=== PATIENT | male | born 1985 | race Caucasian/White ===

== ENCOUNTER 2024-04-12 07:08 | Emergency (ER) | payer OTHER ==
[2024-04-12 07:20] VITALS: TEMP 99; BMI 11.1
[2024-04-12] MEDS ORDERED: METOCLOPRAMIDE HCL INJECTION 10 MG/2 ML VIAL ONE (08:06)
[2024-04-12] MEDS: SODIUM CHLORIDE 0.9% 500 ML INFUS.BAG IV ONE (08:26)
[2024-04-12] MEDS: METOCLOPRAMIDE HCL INJECTION 10 MG/2 ML VIAL IVPB ONE (08:26)
[2024-04-12 09:54] VITALS: BP 120/63; PULSE 55; RESP 18
== END 2024-04-12 09:48 | disposition home or self-care (01) ==
LOC: JER 07:08
PROC: 3E033GC Introduction of Other Therapeutic Substance into Peripheral Vein, Percutaneous Approach (ICD-10-PCS; principal; 2024-04-12)
DX: G43.909 Migraine, unspecified, not intractable, without status migrainosus (principal); R11.0 Nausea
CPT/HCPCS: 99284-25

== ENCOUNTER 2024-06-10 17:29 | Emergency (ER) | payer OTHER ==
[2024-06-10 17:39] VITALS: BP 138/74; PULSE 77; RESP 16; TEMP 98.5; BMI 26.4
[2024-06-10] MEDS ORDERED: SULFAMETHOXAZOLE/TRIMETHOPRIM 800MG/160MG D.S. TABLET ONE (22:15)
[2024-06-10] MEDS: SULFAMETHOXAZOLE/TRIMETHOPRIM 800MG/160MG D.S. TABLET PO ONE (23:00)
== END 2024-06-10 23:07 | disposition home or self-care (01) ==
LOC: JER 17:29
DX: L03.115 Cellulitis of right lower limb (principal)
CPT/HCPCS: 99283-25

== ENCOUNTER 2024-06-12 14:41 | Inpatient (IN) | payer OTHER ==
[2024-06-12 14:54] VITALS: BMI 27.9
[2024-06-12] MEDS ORDERED: PIPERACILLIN/TAZOB 4.5 GM 4.5 GM/100 ML BAG IVPB ONE (15:48)
[2024-06-12] MEDS ORDERED: ACETAMINOPHEN INJECTION 100 ML ONE (15:48)
[2024-06-12] MEDS: LACTATED RINGERS SOLUTION 1000 ML INFUS.BAG IV ONE (16:15)
[2024-06-12] MEDS: ACETAMINOPHEN 1000 MG/100 ML BAG IVPB ONE (16:15)
[2024-06-12] MEDS: PIPERACILLIN/TAZOB 4.5 GM 4.5 GM in DEXTROSE 5%-WATER 100 ML IVPB ONE (16:30)
[2024-06-12 16:31] LABS: BASO % 0.3 % (0-2.0); EOS % 1.3 % (0-4.5); HEMATOCRIT 41.8 % (35.4-49); HEMOGLOBIN 13.8 GM/dL (11.7-16.9); LYMPH % 10.1 % (8-40); MCH 30.4 pg (25.7-33.7); MCHC 32.9 g/dl (32.0-35.9); MEAN CELL VOLUME 92.6 fl (80-96); MEAN PLT VOLUME 8.3 fl (7.5-11.1); MONO % 6.2 % (3.8-10.2); NEUT % 82.1 % (42.8-82.8); PLATELET COUNT 231 10^3/uL (134-434); RBC 4.52 M/mm3 (4.00-5.60); WHITE BLOOD COUNT 10.9 K/mm3 (4.0-10.0)
[2024-06-12 16:36] LABS: INR 1.13 (0.83-1.09)
[2024-06-12 16:39] LABS: ACTIVATED PTT 29.3 SECONDS (25.2-36.5); POTASSIUM 4.1 mmol/L (3.5-5.1)
[2024-06-12 16:41] LABS: CALCIUM 8.6 mg/dL (8.5-10.1)
[2024-06-12 16:42] LABS: MAGNESIUM 2.1 mg/dL (1.8-2.4)
[2024-06-12 16:45] LABS: CREATININE 0.8 mg/dL (0.55-1.3)
[2024-06-12 16:47] LABS: BILIRUBIN,TOTAL 0.3 mg/dL (0.2-1); TOT PROT 7.4 g/dl (6.4-8.2)
[2024-06-12] MEDS ORDERED: ACETAMINOPHEN 500 MG TABLET (FP) PO PRN (17:08)
[2024-06-12 17:39] LABS: ERYTHROCYTE SEDIMENTATION RATE 28 mm/hr (0-10)
[2024-06-12] MEDS: VANCOMYCIN PREMIX 1.75 GM 1,750 MG/350 ML PIGGYBACK IVPB ONE (19:15)
[2024-06-12] MEDS ORDERED: CLINDAMYCIN 600MG PREMIX IVPB 600 MG/50 ML BAG IVPB ONE (20:09)
[2024-06-12] MEDS: CLINDAMYCIN 600MG PREMIX IVPB 600 MG/50 ML BAG IVPB SCH (23:30)
[2024-06-13 08:55] LABS: BASO % 0.4 % (0-2.0); EOS % 3.4 % (0-4.5); HEMATOCRIT 39.3 % (35.4-49); HEMOGLOBIN 13.1 GM/dL (11.7-16.9); LYMPH % 12.9 % (8-40); MCH 30.9 pg (25.7-33.7); MCHC 33.4 g/dl (32.0-35.9); MEAN CELL VOLUME 92.5 fl (80-96); MEAN PLT VOLUME 8.5 fl (7.5-11.1); MONO % 6.7 % (3.8-10.2); NEUT % 76.6 % (42.8-82.8); PLATELET COUNT 238 10^3/uL (134-434); RBC 4.25 M/mm3 (4.00-5.60); RDW 12.6 % (11.9-15.9); WHITE BLOOD COUNT 6.1 K/mm3 (4.0-10.0)
[2024-06-13 09:08] LABS: POTASSIUM 4.1 mmol/L (3.5-5.1)
[2024-06-13 09:11] LABS: CALCIUM 8.8 mg/dL (8.5-10.1)
[2024-06-13 09:12] LABS: BLOOD UREA NITROGEN 11.5 mg/dL (7-18)
[2024-06-13 09:15] LABS: CREATININE 0.8 mg/dL (0.55-1.3)
[2024-06-14 09:36] LABS: BASO % 0.5 % (0-2.0); EOS % 3.3 % (0-4.5); HEMATOCRIT 39.4 % (35.4-49); LYMPH % 25.9 % (8-40); MCH 30.6 pg (25.7-33.7); MEAN CELL VOLUME 92.8 fl (80-96); MEAN PLT VOLUME 8.4 fl (7.5-11.1); MONO % 7.8 % (3.8-10.2); NEUT % 62.5 % (42.8-82.8); PLATELET COUNT 253 10^3/uL (134-434); RBC 4.24 M/mm3 (4.00-5.60); RDW 12.8 % (11.9-15.9); WHITE BLOOD COUNT 4.4 K/mm3 (4.0-10.0)
[2024-06-14 09:41] LABS: CALCIUM 8.8 mg/dL (8.5-10.1); INR 1.13 (0.83-1.09); PROTHROMBIN TIME (PATIENT) 12.9 SEC (9.7-13.0)
[2024-06-14 09:42] LABS: BLOOD UREA NITROGEN 13.1 mg/dL (7-18)
[2024-06-14 09:45] LABS: CREATININE 0.8 mg/dL (0.55-1.3)
[2024-06-14] MEDS ORDERED: BUPIVACAINE HCL/PF 0.5% (5MG/ML) 10 ML VIAL ONE (10:59)
[2024-06-14] MEDS ORDERED: LIDOCAINE HCL 2% (20ML MULTI-DOSE VIAL) ONE (10:59)
[2024-06-14] MEDS ORDERED: MIDAZOLAM HCL 2 MG/2 ML SINGLE DOSE VIAL ONE (11:03)
[2024-06-14] MEDS ORDERED: PROPOFOL 20 ML ONE (11:03)
[2024-06-14] MEDS ORDERED: ONDANSETRON 4 MG/2 ML VIAL IVPUSH PRN ×2 (12:26→12:56)
[2024-06-14] MEDS ORDERED: LACTATED RINGERS SOLUTION 1,000 ML IV SCH (12:30)
[2024-06-14] MEDS ORDERED: ACETAMINOPHEN 500 MG TABLET (FP) PO PRN (12:56)
[2024-06-14] MEDS ORDERED: oxyCODONE HCL 5 MG TABLET PO PRN (12:56)
[2024-06-14] MEDS: LACTATED RINGERS SOLUTION 1,000 ML IV SCH (14:38)
[2024-06-14] MEDS: CLINDAMYCIN 600MG PREMIX IVPB 600 MG/50 ML BAG IVPB SCH (18:03)
[2024-06-15 09:42] LABS: HEMATOCRIT 39.5 % (35.4-49); HEMOGLOBIN 13.1 GM/dL (11.7-16.9); MCH 30.5 pg (25.7-33.7); MCHC 33.2 g/dl (32.0-35.9); MEAN CELL VOLUME 91.8 fl (80-96); MEAN PLT VOLUME 8.5 fl (7.5-11.1); PLATELET COUNT 278 10^3/uL (134-434); RDW 12.6 % (11.9-15.9); WHITE BLOOD COUNT 8.1 K/mm3 (4.0-10.0)
[2024-06-15 10:03] LABS: POTASSIUM 4.2 mmol/L (3.5-5.1)
[2024-06-15 10:21] LABS: CALCIUM 8.8 mg/dL (8.5-10.1)
[2024-06-15 10:22] LABS: ALBUMIN 3.5 g/dl (3.4-5.0)
[2024-06-15 10:25] LABS: CREATININE 0.8 mg/dL (0.55-1.3)
[2024-06-15 10:26] LABS: BILIRUBIN,TOTAL 0.3 mg/dL (0.2-1)
[2024-06-15 10:27] LABS: TOT PROT 6.6 g/dl (6.4-8.2)
[2024-06-15 14:10] VITALS: BP 127/65; PULSE 74; RESP 18; TEMP 98.4
== END 2024-06-15 16:40 | disposition home or self-care (01) | DRG 383 ==
LOC: JER 14:41 → JERBED 16:57 → J6S 21:03 → OBSVTOIN 06-13 13:32
PROVIDERS: ADMIT Internal Medicine; ATTEND Internal Medicine
PROC: 0Y9C0ZZ Drainage of Right Upper Leg, Open Approach (ICD-10-PCS; 2024-06-14)
PROC: 0JBL0ZZ Excision of Right Upper Leg Subcutaneous Tissue and Fascia, Open Approach (ICD-10-PCS; principal; 2024-06-14 12:30)
DX: L02.415 Cutaneous abscess of right lower limb (principal); L02.92 Furuncle, unspecified; L03.115 Cellulitis of right lower limb; B95.62 Methicillin resistant Staphylococcus aureus infection as the cause of diseases classified elsewhere
CPT/HCPCS: 36415; 73552-TC-RT-FY; 76882-TC-RT-FY; 80048; 80053; 82962; 83036; 83735; 85025; 85027; 85610; 85651; 85730; 86140; 86850; 86900; 86901; 87040; 87070; 87075; 87186; 87205; 93005; 93010; 94760; 99285-25; G0378; J0131; J3370